=== PATIENT | male | born 1975 | race Caucasian/White ===

== ENCOUNTER 2016-12-08 01:03 | Emergency (ER) | payer SELFPAY ==
[~2016-12-08] VITALS: Ht 182.9 cm; Wt 107.9 kg
[~2016-12-08 01:03] MED LIST: AMOXICILLIN500 MG PO; FLEXERIL10 MG PO; HYDROCODON-ACE1 EAC7 PO; KEFLEX500 MG PO; NAPROSYN500 MG PO; NORCO 5/3251 TABLET PO; PEN-VEE K,VEET500 MG PO
[2016-12-08] MEDS ORDERED: NORCO 5/3251 TABLET PO (02:37)
[2016-12-08] MEDS ORDERED: PEN-VEE K,VEET500 MG PO (02:37)
[2016-12-08 02:55] VITALS: BP 165/82
== END 2016-12-08 02:56 | disposition home or self-care (01) ==
LOC: EME 01:03
PROC: 3E0T3BZ Introduction of Anesthetic Agent into Peripheral Nerves and Plexi, Percutaneous Approach (ICD-10-PCS; principal; 2016-12-08)
DX: K02.9 Dental caries, unspecified (principal); F17.200 Nicotine dependence, unspecified, uncomplicated
CPT/HCPCS: 99281; 99283